=== PATIENT | female | born 1980 | race Caucasian/White ===

== ENCOUNTER 2022-12-23 09:16 | Emergency (ER) | payer MEDICAID ==
[~2022-12-23] VITALS: Ht 157.5 cm; Wt 112.9 kg
[2022-12-23 09:23] VITALS: BP 112/61; PULSE 80; RESP 16; TEMP 97.8
[2022-12-23] MEDS ORDERED: MORPHINE SULFATE 4 MG/ML SYR IVP ONE (10:05)
[2022-12-23 10:14] LABS: BASOPHILS # (AUTO) 0.1 K/uL (0.00-0.22); BASOPHILS % (AUTO) 0.7 % (0.0-2.0); EOSINOPHILS # (AUTO) 0.1 K/uL (0-0.4); EOSINOPHILS % (AUTO) 2.2 % (0.0-4.0); HEMATOCRIT 27.8 % (36-48); HEMOGLOBIN 8.7 g/dL (12.0-16.0); LYMPHOCYTES # (AUTO) 0.8 K/uL (2.5-16.5); LYMPHOCYTES % (AUTO) 11.8 % (20.5-51.1); MEAN CORPUSCULAR HEMOGLOBIN 23 pg (27-31); MEAN CORPUSCULAR HGB CONC 31 g/dL (33-37); MEAN CORPUSCULAR VOLUME 72.1 fL (80-94); MONOCYTES # (AUTO) 0.3 K/uL (0.8-1.0); MONOCYTES % (AUTO) 4.2 % (1.7-9.3); NEUTROPHILS # (AUTO) 5.5 K/uL (1.8-7.7); NEUTROPHILS % (AUTO) 81.1 % (42.2-75.2); PLATELET COUNT (AUTO) 352 K/uL (140-450); RED BLOOD CELL COUNT(AUTO) 3.86 MIL/uL (4.20-5.40); RED CELL DISTRIBUTION WIDTH 21.9 % (11.6-13.7); WHITE BLOOD COUNT (AUTO) 6.8 K/uL (4.8-10.8)
[2022-12-23 10:25] LABS: LACTIC ACID 1.7 mmol/L (0.4-2.0)
[2022-12-23 10:26] LABS: CREATINE KINASE, TOTAL 13 U/L (26-192)
[2022-12-23] MEDS ORDERED: NACL 0.9% 1,000 ML IV ONE (10:55)
[2022-12-23 10:59] LABS: ALBUMIN 1.9 g/dL (3.4-5.0); ANION GAP 14.1 (8-16); CALCIUM 7.8 mg/dL (8.5-10.1); CREATININE 0.8 mg/dL (0.6-1.3); POTASSIUM 4.1 mmol/L (3.5-5.1); TOTAL BILIRUBIN 0.3 mg/dL (0.0-1.0); TOTAL PROTEIN, SERUM 5.9 g/dL (6.4-8.2)
[2022-12-23 11:01] LABS: APPEARANCE,URINE CLEAR (CLEAR); BILIRUBIN,URINE NEGATIVE (NEGATIVE); BLOOD, URINE TRACE-I (NEGATIVE); COLOR,URINE YELLOW (YELLOW); LEUKOCYTE ESTERASE ,URINE TRACE (NEGATIVE); NITRITE, URINE NEGATIVE (NEGATIVE); PH,URINE 5.5 (5.0-9.0); PROTEIN,URINE TRACE (NEGATIVE); UGLUCOSE NEGATIVE (NEGATIVE); UROBILINOGEN,URINE 0.2 EU/dL (0.2 - 1)
[2022-12-23] MEDS ORDERED: HYDROmorphone PFS 2 MG/ML SYR IVP ONE ×2 (11:45→14:50)
[2022-12-23] MEDS ORDERED: SULF-59 PO (14:49)
[2022-12-23 15:35] VITALS: BP 96/65; PULSE 110; RESP 18; TEMP 97.1; O2SAT 93
== END 2022-12-23 15:44 | disposition home or self-care (01) ==
LOC: MED 09:16
DX: R10.12 Left upper quadrant pain (principal); D64.9 Anemia, unspecified; Z85.42 Personal history of malignant neoplasm of other parts of uterus; Z79.899 Other long term (current) drug therapy
CPT/HCPCS: 36415; 71045; 71250; 74176; 80053; 81003; 82550; 83605; 83690; 83880; 84484; 85025; 87040; 87086; 96361; 96374; 96375; 96376; 99285; J1170; J2270; J7030